=== PATIENT | male | born 1990 | race Caucasian/White ===

== ENCOUNTER 2022-12-11 15:35 | Emergency (ER) | payer SELFPAY ==
[2022-12-11 15:37] VITALS: BP 136/107; PULSE 115; RESP 16; TEMP 36.6; O2SAT 92; BMI 21.6
[2022-12-11] MEDS: famotidine 20 mg/2 mL INJ 40 MG IVP (15:49)
[2022-12-11] MEDS: dexamethasone 10 mg/mL INJ IVP (15:49)
[2022-12-11] MEDS: diphenhydrAMINE 50 mg/mL SDV 1mL IVP (15:49)
--- NOTE | 2022-12-11 15:52 | W.ED.ALLEREA ---
HPI - Allergic Reaction General: Chief complaint: Allergic Reaction Stated complaint: Bee Sting, Allergic Time Seen by Provider: 12/11/22 15:36 Source: patient Mode of arrival: ambulatory Limitations: no limitations History of Present Illness: HPI narrative: 32-year-old male who has a history of asthma along with allergic reaction to bee stings he states he was stung in his upper lip just prior to arrival he states he had swelling to lip along with shortness of breath and wheezing he does have wheezing here with some tachypnea mild swelling to his lip denies any difficulty swallowing had a slight rash to his body. Associated symptoms: Deny abdominal pain, nausea or vomiting Review of Systems Const: Denies: fever(s) or chills Eyes: Denies: blurry vision ENMT: Denies: throat pain or odynophagia Card: Denies: chest pain Resp: Reports: dyspnea and wheezing GI: Denies: abdominal pain, nausea or vomiting Skin/Breast: Reports: rash Neuro: Denies: headache(s) Psych: Denies: depression PFSH ED PFSH: Social History Smoking and tobacco status: current every day smoker Physical Exam Const: COMMON NORMALS: patient oriented x3 HENMT: COMMON NORMALS: normocephalic and atraumatic HEAD & SCALP: normocephalic and atraumatic OTHER: Swelling to upper lip no difficulty with secretions or throat closing Eye: COMMON NORMALS: conjunctivae normal CONJUNCTIVA: Yes conjunctivae normal Neck/C-Spine: COMMON NORMALS: supple Chest: COMMONS NORMALS: normal inspection of the chest Resp: EFFORT & INSPECTION: Yes tachypneic AUSCULTATION: wheezes Cardio: COMMON NORMALS: regular rhythm RATE: tachycardic RHYTHM: regular rhythm GI: INSPECTION: Yes normal to inspection Extremity: COMMON NORMALS: normal to inspection Neuro: COMMON NORMALS: patient oriented x3 Psych: COMMON NORMALS: mental status grossly normal Skin: NARRATIVE SKIN EXAM: Mild rash to chest Course Vital Signs: Vital signs: Vital Signs Temperature 97.9 F 12/11/22 15:37 Pulse Rate 95 12/11/22 17:08 Respiratory Rate 16 12/11/22 17:08 Blood Pressure 130/90 12/11/22 17:08 Pulse Oximetry 98 12/11/22 17:08 Oxygen Delivery Me thod Room Air 12/11/22 15:37 MDM - Allergic Reaction Medical Decision Making Patient presents here with allergic reaction to bee sting. He is much improved here after epinephrine did observe him for roughly 2 hours he is wanted to leave I feel he is stable for discharge we will prescribe him epi and prednisone he is follow-up PCP and return if worsening. Medical Records I reviewed the patient's medical records. Lab Data I reviewed the patient's lab results. Discharge Plan Discharge Patient Disposition: Home Clinical Impression: Allergic reaction Condition: Stable Prescriptions: New EpiPen 2-Murphy 0.3 mg/0.3 mL auto-injector 0.3 mg IM Q4H PRN (Reason: anaphylaxis) Qty: 2 0RF prednisone 50 mg tablet 50 mg PO DAILY Qty: 5 0RF No Action albuterol sulfate 2.5 mg /3 mL (0.083 %) solution for nebulization 2.5 mg inhalation QID PRN (Reason: shortness of breath or wheezing) Qty: 30 0RF Rx Instructions: 340b azithromycin 250 mg tablet See Rx Instructions PO .COMPLEX Qty: 6 0RF Rx Instructions: take 500 mg today (day 1), then 250 mg for 4 days (days 2-5) PO methylprednisolone [Medrol (Murphy)] 4 mg tablets,dose pack See Rx Instructions PO PER PKG DIR Qty: 21 0RF Rx Instructions: PO PER PKG DIR Discharge Orders: Discharge ED (Routine); Ordered 12/11/22 Ordered By: Opal Hernandez Discharge Diet: Advance as tolerated Discharge Activity: Resume usual activity Patient Instructions: Allergic Reaction Coding Level of Care Code ED Physical Chemist for Demar Tobin
[2022-12-11] MEDS: EPINEPHrine 1 mg/mL INJ 0.5 MG IM (16:00)
[2022-12-11 16:29] VITALS: BP 128/82; PULSE 93; RESP 19; O2SAT 97
[2022-12-11 17:08] VITALS: BP 130/90; PULSE 95; RESP 16; O2SAT 98
[2022-12-11 17:32] VITALS: BP 132/87; PULSE 96; RESP 18; O2SAT 98
--- NOTE | 2022-12-16 12:53 | DCPLANNER ---
digital content manager called patient due to no primary care physician - patient declines at this time.
== END 2022-12-11 17:33 | disposition home or self-care (01) ==
PROVIDERS: Emergency Provider Emergency Medicine
DX: T63.441A Toxic effect of venom of bees, accidental (unintentional), initial encounter (principal)
CPT/HCPCS: 96372; 96374; 96375; 99284; J0171; J1100; J1200; J3490

== ENCOUNTER 2023-10-09 08:50 | Observation (INO) | payer SELFPAY ==
[2023-10-09] VITALS (9 sets, daily range): BP systolic 123–154; BP diastolic 77–94; PULSE 86–116; RESP 16–18; TEMP 36.3–37.1; O2SAT 95–99; BMI 25.5
--- NOTE | 2023-10-09 09:05 | CT_ITS ---
WS: [id number] Exam: CT abdomen pelvis w con* [id number] Date/Time of Exam: 10/09/2023 9:46 AM Reason For Exam: abdominal distention/leg swelling DLP: 535.[address] scans at [facility] use at least one of these dose optimization techniques: automated e xposure control; mA and/or kV adjustment per patient size (includes targeted exams where dose is matc hed to clinical indication); or iterative reconstruction. Lower lung zones are clear. Moderate amount of pelvic and abdominal ascites. Hydropic gallbladder. No sign of acute cholecystitis. Several tiny calcified stones are seen in the dependent portion of the gallbladder. The stomach and spleen are unremarkable. The pancreas appears normal. No intrahepatic du ctal dilatation. Hepatic steatosis and probable hepatic cirrhosis noted. The abdominal aorta is robin l in caliber. The portal vein and IVC are patent. Unremarkable kidneys and adrenal glands. No signifi cant lymphadenopathy. No free air. No significant large or small bowel abnormality seen. Normal size appendix visualized. Intact urinary bladder. No pelvic mass or adenopathy. Bony structures are intact . No significant abdominal wall defect. IMPRESSION: 1. Moderate amount of abdominal and pelvic ascites. 2. Probable hepatic cirrhosis and steatosis. 3. Hydropic gallbladder containing tiny stones in the dependent portion. No definite sign of acute ch olecystitis.
--- NOTE | 2023-10-09 09:05 | XRR_ITS ---
PROCEDURE INFORMATION: Exam: XR Chest Exam date and time: 10/09/2023 9:20 AM Age: 33 years old Clinical indication: Other: Swollen legs; Additional info: Swelling TECHNIQUE: Imaging protocol: Radiologic exam of the chest. Views: 1 view. COMPARISON: No relevant prior studies available. FINDINGS: Lungs: Unremarkable. No consolidation. Pleural spaces: Unremarkable. No pleural effusion. No pneumothorax. Heart/Mediastinum: Unremarkable. No cardiomegaly. Bones/joints: Unremarkable. XR/XR chest 1V portable [id number] IMPRESSION: No acute findings.
--- NOTE | 2023-10-09 09:07 | W.ED.GENADLT ---
Documented by User: [email or web address] José 10/09/23 11:14 HPI - General Adult General: Chief complaint: General Medical Stated complaint: swollen legs and feet Time Seen by Provider: 10/09/23 08:56 Source: patient and family Mode of arrival: ambulatory Limitations: no limitations History of Present Illness: Patient is a 33-year-old male with a history of asthma and heavy alcohol use here for complaints of swelling to his lower extremities and abdominal distention. Patient states he first noticed swelling to his legs approximately 3 weeks or so ago. He states he was seen by his PCP Dr. Vizcarra at [facility] and had labs performed. Patient states swelling has continued to worsen and is now affecting his abdomen. He does not complain of abdominal discomfort. He states he quit drinking just a few days ago but prior to this he was consuming approximately a six pack of beer a night. Denies drug use apart from marijuana. He states he has not noticed any yellowing to his skin or eyes. He complains of mild shortness of breath that he attributes to his asthma stating this time of year he has to do daily breathing treatments. Onset (ago): week(s) Location: abdomen and lower extremity Severity: moderate Quality: aching Relieving factors: none Exacerbating factors: none Associated symptoms: Reports dyspnea; Deny chest pain, headache(s), malaise, nausea, rash, palpitations, syncope or vomiting Treatments prior to arrival: none Review of Systems Const: Reports: chills; Denies: fever(s), body aches, fatigue or malaise Eyes: Denies: change in vision, blurry vision, photophobia or yellow eyes Card: Denies: chest pain, palpitations, irregular heart rhythm, lightheadedness, syncope or dyspnea on exertion Resp: Reports: dyspnea and wheezing; Denies: productive cough, non-productive cough, pain on inspiration, change in phlegm color, hemoptysis or chest congestion GI: Reports: other (abdominal swelling/distention); Denies: abdominal pain, nausea, vomiting, hematemesis, heartburn, diarrhea, hematochezia or melena : Denies: flank pain, difficulty urinating, dysuria, urinary frequency or urinary urgency Musc: Reports: extremity pain and extremity swelling; Denies: neck pain, back pain, joint pain or joint swelling Skin/Breast: Denies: rash Neuro: Denies: headache(s), numbness in extremities, weakness in extremities, sensory changes or dizziness PFS ED PFSH: Social History Smoking and tobacco/nicotine status: current every day tobacco/nicotine user Physical Exam Const: COMMON NORMALS: no acute distress, patient oriented x3, no limitations, alert and well nourished GENERAL APPEARANCE: cooperative ORIENTATION/CONSCIOUSNESS: Yes awake, Yes oriented to person, Yes oriented to place and Yes oriented to time OTHER: appears jaundiced HENMT: COMMON NORMALS: normocephalic and atraumatic HEAD & SCALP: normal to inspection, normocephalic and atraumatic FACE & SINUS: normal facial exam Eye: COMMON NORMALS: no scleral icterus Neck/C-Spine: COMMON NORMALS: full ROM, no lymphadenopathy, supple and no meningeal signs Chest: COMMONS NORMALS: normal inspection of the chest Resp: COMMON NORMALS: normal respiratory effort AUSCULTATION: wheezes Cardio: COMMON NORMALS: regular rhythm RATE: tachycardic (slightly) RHYTHM: regular rhythm GI: COMMON NORMALS: Soft to palpation, non-tender and no masses INSPECTION: Yes abdominal distension AUSCULTATION: Yes normoactive bowel sounds PALPATION: Yes Soft to palpation, No Tenderness to palpation present (GI), No Guarding due to palpation present (GI) and No Rigid due to palpation : COMMON NORMALS: Yes no CVA tenderness BLADDER/KIDNEY EXAM: Yes no CVA tenderness Back/Pelvis: COMMON NORMALS: no CVA tenderness and thoracic and lumbar spine normal to inspection Extremity: COMMON NORMALS: full ROM and capillary refill normal NARRATIVE EXTREMITY EXAM: pt has significant pitting symmetrical edema to bilateral LEs Neuro: COMMON NORMALS: patient oriented x3, moves all extremities, no focal motor deficits, no sensory deficits noted and gait normal SENSORIUM/ORIENTATION: Yes alert, Yes oriented to person, Yes oriented to place and Yes oriented to time MENINGEAL SIGNS: Yes no meningeal signs Skin: COMMON NORMALS: no rashes or lesions noted GENERAL SKIN EXAM: no rashes or lesions noted and jaundice Course Vital Signs: Vital signs: Vital Signs Temperature 98.3 F 10/09/23 09:02 Pulse Rate 86 10/09/23 11:45 Respiratory Rate 18 10/09/23 11:42 Blood Pressure 136/93 03/25/24 11:42 Pulse Oximetry 99 10/09/23 11:42 Oxygen Delivery Me thod Room Air 10/09/23 11:42 MDM - General Adult Medical Decision Making Patient is a 33-year-old male here for complaints of lower extremity leg swelling and abdominal distention over the past 3 weeks or so. He has never experienced anything prior to this before. He does have a history of heavy alcohol use. Blood work today showing thrombocytopenia with significantly elevated LFTs. Hepatitis panel is negative. CT scan showing abdominal ascites with probable hepatic cirrhosis. Will speak to Dr. Carlton who will speak to hospitalist for admission. Medical Records I reviewed the patient's medical records. Lab Data I reviewed the patient's lab results. 10/09/23 09:06 10/09/23 09:06 Laboratory Results WBC 10.57 10^3/uL (3.29-11.43) 10/09/23 09:06 RBC 4.06 10^6/uL (3.85-5.65) 10/09/23 09:06 Hgb 14.80 g/dL (11.27-16.99) 10/09/23 09:06 Hct 43.2 % (37-53) 10/09/23 09:06 MCV 106.4 fl (82-101) H 10/09/23 09:06 MCH 36.5 pg (27-33) H 10/09/23 09:06 MCHC 34.3 g/dL (30-55) 10/09/23 09:06 RDW 16.3 % (12.1-15.1) H 10/09/23 09:06 Plt Count 154 10^3/cmm (157-399) L 10/09/23 09:06 MPV 11.0 fL (7.4-10.4) H 10/09/23 09:06 Neut % (Auto) 75.1 % 10/09/23 09:06 Lymph % (Auto) 14.5 % 10/09/23 09:06 [place] % (Auto) 8.6 % 10/09/23 09:06 Eos % (Auto) 0.2 % 10/09/23 09:06 Baso % (Auto) 1.1 % 10/09/23 09:06 Neut # (Auto) 7.94 10^3/uL (1.8-7.7) H 10/09/23 09:06 Lymph # (Auto) 1.5 10^3/uL (0.8-4.8) 10/09/23 09:06 [place] # (Auto) 0.9 10^3/uL (0.2-0.9) 10/09/23 09:06 Eos # (Auto) 0.0 10^3/uL (0.0-0.8) 10/09/23 09:06 Baso # (Auto) 0.1 10^3/uL (0.0-0.1) 10/09/23 09:06 Nucleated RBC % (auto) 0 % 10/09/23 09:06 Nucleated RBCs # 0.0 /100WBC 10/09/23 09:06 PT 15.00 SECONDS (12.1-14.9) H 10/09/23 09:06 INR 1.14 (0.8-1.2) 10/09/23 09:06 APTT 29.7 SECONDS (23.9-36.7) 10/09/23 09:06 Sodium 137 mmol/L (136-145) 10/09/23 09:06 Potassium 4.0 mmol/L (3.5-5.1) 10/09/23 09:06 Chloride 102 mmol/L (98-107) 10/09/23 09:06 Carbon Dioxide 23 mmol/L (22-29) 10/09/23 09:06 Anion Gap 16.0 (5-19) 10/09/23 09:06 BUN 6 mg/dL (6-20) 10/09/23 09:06 Creatinine 0.5 mg/dL (0.7-1.2) L 10/09/23 09:06 GFR Calculation 193.9 mL/min (90-130) H 10/09/23 09:06 Glucose 97 mg/dL (65-115) 10/09/23 09:06 Calculated Osmolality 282 mOsm/kg (285-295) L 10/09/23 09:06 Calcium 8.1 mg/dL (8.5-10.5) L 10/09/23 09:06 Total Bilirubin 4.2 mg/dL (0.15-1.2) H 10/09/23 09:06 AST 175 U/L (0-40) H 10/09/23 09:06 ALT 77 U/L (0-41) H 10/09/23 09:06 Alkaline Phosphatase 262 U/L (40-130) H 10/09/23 09:06 NT-Pro-B Natriuret Pep 926 pg/mL (0-125) H 10/09/23 09:06 Total Protein 6.7 g/dL (6.6-8.7) 10/09/23 09:06 Albumin 3.2 g/dL (3.5-5.2) L 10/09/23 09:06 Globulin 3.5 g/dL (1.3-4.6) 10/09/23 09:06 Lipase 66 U/L (13-60) H 10/09/23 09:06 Urine Color Christina (Yellow) 10/09/23 09:35 Urine Appearance Clear (CLEAR) 10/09/23 09:35 Urine pH 7 (5-7) 10/09/23 09:35 Ur Specific [place] 1.005 (1.005-1.030) 10/09/23 09:35 Urine Protein Trace (Negative) 10/09/23 09:35 Urine Glucose (UA) Norm (Normal) 10/09/23 09:35 Urine Ketones Negative (Negative) 10/09/23 09:35 Urine Blood Neg (Negative) 10/09/23 09:35 Urine Nitrate Negative (Negative) 10/09/23 09:35 Urine Bilirubin 1+ (Negative) H 10/09/23 09:35 Urine Urobilinogen 4 mg/dL (Negative) H 10/09/23 09:35 Ur Leukocyte Esterase Trace (Negative) H 10/09/23 09:35 Urine RBC None /hpf (0-2) 10/09/23 09:35 Urine WBC 0-4 /hpf (0-5) H 10/09/23 09:35 Ur Squamous Epith Cells 0-4 /hpf (0-5) H 10/09/23 09:35 Amorphous Sediment Not Reportable 10/09/23 09:35 Urine Bacteria Trace /hpf (NONE) 10/09/23 09:35 Urine Mucus 1+ /hpf 10/09/23 09:35 Hepatitis A IgM Ab Non-reactive (Nonreactive) 10/09/23 09:06 Hep Bs Antigen Non-reactive (Nonreactive) 10/09/23 09:06 Hep B Core IgM Ab Non-reactive (Nonreactive) 10/09/23 09:06 Hepatitis C Antibody Non-reactive (Nonreactive) 10/09/23 09:06 All radiology interpretation(s) finalized by discharge Discharge Plan Discharge Patient Disposition: Admitted As Inpatient Clinical Impression: Chronic alcohol abuse Cirrhosis of liver Qualifiers: Hepatic cirrhosis type: alcoholic cirrhosis Ascites presence: with ascites Qualified Code(s): K70.31 - Alcoholic cirrhosis of liver with ascites Condition: Stable Coding Level of Care Code ED Technical Sales Representative for Chg Fwd Documented by User: Lev Carlton DO 10/09/23 12:24 HPI - General Adult General: Chief complaint: General Medical Stated complaint: swollen legs and feet Time Seen by Provider: 10/09/23 08:56 [facility] ED PFSH: Social History Smoking and tobacco/nicotine status: current every day tobacco/nicotine user Course Vital Signs: Vital signs: Vital Signs Temperature 98.3 F 10/09/23 09:02 Pulse Rate 86 10/09/23 11:45 Respiratory Rate 18 10/09/23 11:42 Blood Pressure 136/93 10/09/23 11:42 Pulse Oximetry 99 10/09/23 11:42 Oxygen Delivery Me thod Room Air 10/09/23 11:42 MDM - General Adult Medical Decision Making Patient is a 33-year-old male here for complaints of lower extremity leg swelling and abdominal distention over the past 3 weeks or so. He has never experienced anything prior to this before. He does have a history of heavy alcohol use. Blood work today showing thrombocytopenia with significantly elevated LFTs. Hepatitis panel is negative. CT scan showing abdominal ascites with probable hepatic cirrhosis. Will speak to Dr. Carlton who will speak to hospitalist for admission. 33-year-old male initially seen by ABIGAIL José for swelling in his legs and feet. Transaminases and T. bili have been elevated while previous lab work and [facility] which were scanned to the chart similar findings today INR slightly extended from baseline. Patient is tremulous and anxious he is trying to stop drinking. Has hepatitis panel is negative. Discussed with hospitalist will place on observation for detox and diuresis Lab Data 10/09/23 09:06 10/09/23 09:06 Laboratory Results WBC 10.57 10^3/uL (3.29-11.43) 10/09/23 09:06 RBC 4.06 10^6/uL (3.85-5.65) 10/09/23 09:06 Hgb 14.80 g/dL (11.27-16.99) 10/09/23 09:06 Hct 43.2 % (37-53) 10/09/23 09:06 MCV 106.4 fl (82-101) H 10/09/23 09:06 MCH 36.5 pg (27-33) H 10/09/23 09:06 MCHC 34.3 g/dL (30-55) 10/09/23 09:06 RDW 16.3 % (12.1-15.1) H 10/09/23 09:06 Plt Count 154 10^3/cmm (157-399) L 10/09/23 09:06 MPV 11.0 fL (7.4-10.4) H 10/09/23 09:06 Neut % (Auto) 75.1 % 10/09/23 09:06 Lymph % (Auto) 14.5 % 10/09/23 09:06 [place] % (Auto) 8.6 % 10/09/23 09:06 Eos % (Auto) 0.2 % 10/09/23 09:06 Baso % (Auto) 1.1 % 10/09/23 09:06 Neut # (Auto) 7.94 10^3/uL (1.8-7.7) H 10/09/23 09:06 Lymph # (Auto) 1.5 10^3/uL (0.8-4.8) 10/09/23 09:06 [place] # (Auto) 0.9 10^3/uL (0.2-0.9) 10/09/23 09:06 Eos # (Auto) 0.0 10^3/uL (0.0-0.8) 10/09/23 09:06 Baso # (Auto) 0.1 10^3/uL (0.0-0.1) 10/09/23 09:06 Nucleated RBC % (auto) 0 % 10/09/23 09:06 Nucleated RBCs # 0.0 /100WBC 10/09/23 09:06 PT 15.00 SECONDS (12.1-14.9) H 10/09/23 09:06 INR 1.14 (0.8-1.2) 10/09/23 09:06 APTT 29.7 SECONDS (23.9-36.7) 10/09/23 09:06 Sodium 137 mmol/L (136-145) 10/09/23 09:06 Potassium 4.0 mmol/L (3.5-5.1) 10/09/23 09:06 Chloride 102 mmol/L (98-107) 10/09/23 09:06 Carbon Dioxide 23 mmol/L (22-29) 10/09/23 09:06 Anion Gap 16.0 (5-19) 10/09/23 09:06 BUN 6 mg/dL (6-20) 10/09/23 09:06 Creatinine 0.5 mg/dL (0.7-1.2) L 10/09/23 09:06 GFR Calculation 193.9 mL/min (90-130) H 10/09/23 09:06 Glucose 97 mg/dL (65-115) 10/09/23 09:06 Calculated Osmolality 282 mOsm/kg (285-295) L 10/09/23 09:06 Calcium 8.1 mg/dL (8.5-10.5) L 10/09/23 09:06 Total Bilirubin 4.2 mg/dL (0.15-1.2) H 10/09/23 09:06 AST 175 U/L (0-40) H 10/09/23 09:06 ALT 77 U/L (0-41) H 10/09/23 09:06 Alkaline Phosphatase 262 U/L (40-130) H 10/09/23 09:06 NT-Pro-B Natriuret Pep 926 pg/mL (0-125) H 10/09/23 09:06 Total Protein 6.7 g/dL (6.6-8.7) 10/09/23 09:06 Albumin 3.2 g/dL (3.5-5.2) L 10/09/23 09:06 Globulin 3.5 g/dL (1.3-4.6) 10/09/23 09:06 Lipase 66 U/L (13-60) H 10/09/23 09:06 Urine Color Christina (Yellow) 10/09/23 09:35 Urine Appearance Clear (CLEAR) 10/09/23 09:35 Urine pH 7 (5-7) 10/09/23 09:35 Ur Specific [place] 1.005 (1.005-1.030) 10/09/23 09:35 Urine Protein Trace (Negative) 10/09/23 09:35 Urine Glucose (UA) Norm (Normal) 10/09/23 09:35 Urine Ketones Negative (Negative) 10/09/23 09:35 Urine Blood Neg (Negative) 10/09/23 09:35 Urine Nitrate Negative (Negative) 10/09/23 09:35 Urine Bilirubin 1+ (Negative) H 10/09/23 09:35 Urine Urobilinogen 4 mg/dL (Negative) H 10/09/23 09:35 Ur Leukocyte Esterase Trace (Negative) H 10/09/23 09:35 Urine RBC None /hpf (0-2) 10/09/23 09:35 Urine WBC 0-4 /hpf (0-5) H 10/09/23 09:35 Ur Squamous Epith Cells 0-4 /hpf (0-5) H 10/09/23 09:35 Amorphous Sediment Not Reportable 10/09/23 09:35 Urine Bacteria Trace /hpf (NONE) 10/09/23 09:35 Urine Mucus 1+ /hpf 10/09/23 09:35 Hepatitis A IgM Ab Non-reactive (Nonreactive) 10/09/23 09:06 Hep Bs Antigen Non-reactive (Nonreactive) 10/09/23 09:06 Hep B Core IgM Ab Non-reactive (Nonreactive) 10/09/23 09:06 Hepatitis C Antibody Non-reactive (Nonreactive) 10/09/23 09:06 Discharge Plan Discharge Patient Disposition: Admitted As Inpatient Clinical Impression: Chronic alcohol abuse Cirrhosis of liver Qualifiers: Hepatic cirrhosis type: alcoholic cirrhosis Ascites presence: with ascites Qualified Code(s): K70.31 - Alcoholic cirrhosis of liver with ascites Condition: Stable Coding Level of Care Code ED Technical Sales Representative for Demar Tobin
[2023-10-09 09:21] LABS: Basophils # 0.1 10^3/uL (0.0-0.1); Basophils % 1.1 %; Eosinophils % 0.2 %; Hematocrit 43.2 % (37-53); Lymphocytes # 1.5 10^3/uL (0.8-4.8); Lymphocytes % 14.5 %; Mean Corpuscular HGB Conc 34.3 g/dL (30-55); Mean Corpuscular Hemoglobin 36.5 pg (27-33); Mean Corpuscular Volume 106.4 fl (82-101); Monocytes # 0.9 10^3/uL (0.2-0.9); Monocytes % 8.6 %; Neutrophils # 7.94 10^3/uL (1.8-7.7); Neutrophils % 75.1 %; Nucleated Red Blood Cells % 0 %; Platelet Count 154 10^3/cmm (157-399); Red Blood Count 4.06 10^6/uL (3.85-5.65); Red Cell Distribution Width 16.3 % (12.1-15.1); White Blood Count 10.57 10^3/uL (3.29-11.43)
[2023-10-09 09:34] LABS: INR 1.14 (0.8-1.2)
[2023-10-09 09:45] LABS: Alanine Aminotransferase 77 U/L (0-41); Albumin Level 3.2 g/dL (3.5-5.2); Alkaline Phosphatase 262 U/L (40-130); Aspartate Amino Transferase 175 U/L (0-40); Blood Urea Nitrogen 6 mg/dL (6-20); Calcium 8.1 mg/dL (8.5-10.5); Carbon Dioxide 23 mmol/L (22-29); Chloride 102 mmol/L (98-107); Creatinine Clr Calc Pharmacy 227.4382; Globulin 3.5 g/dL (1.3-4.6); Glomerular Filtration Rate 193.9 mL/min (90-130); Glucose 97 mg/dL (65-115); Lipase 66 U/L (13-60); NT Pro B Type Natriuretic Pept 926 pg/mL (0-125); Osmolality Calculated 282 mOsm/kg (285-295); Sodium 137 mmol/L (136-145); Total Bilirubin 4.2 mg/dL (0.15-1.2); Total Protein 6.7 g/dL (6.6-8.7)
[2023-10-09 09:57] LABS: Partial Thromboplastin Time 29.7 SECONDS (23.9-36.7)
[2023-10-09] MEDS: iohexol 350 mg/mL 500 mL Btl (per mL) IV (10:01)
[2023-10-09 10:15] LABS: Add Urine Microscopic? YES; Bilirubin Urine 1+ (Negative); Blood Urine Neg (Negative); Glucose Urine UA Norm (Normal); Ketones Urine Negative (Negative); Leukocyte Esterase Urine Trace (Negative); Nitrate Urine Negative (Negative); Protein Urine Trace (Negative); Specific Gravity, Urine 1.005 (1.005-1.030); Urine Appearance Clear (CLEAR); Urine Color Amber (Yellow); Urobilinogen Urine 4 mg/dL (Negative); pH Urine 7 (5-7)
[2023-10-09 10:17] LABS: Add Urine Culture? No; Bacteria Urine TRACE /hpf; Mucus Urine 1+ /hpf; Squamous Epithelial Cell Urine 0-4 /hpf (0-5); WBC Urine 0-4 /hpf (0-5)
[2023-10-09 10:19] LABS: Hepatitis A Antibody IgM Non-Reactive (Nonreactive); Hepatitis B Core IgM Non-Reactive (Nonreactive); Hepatitis B Surface Antigen Non-Reactive (Nonreactive); Hepatitis C Virus Antibody Non-Reactive (Nonreactive)
[2023-10-09] MEDS: ipratropium-albuterol 3 mL Neb INHALATION (11:42)
--- NOTE | 2023-10-09 11:57 | ECG_ITS ---
[facility] Test Date: 2023-10-09 Pat Name: Alden Mayfield Department: Room: Gender: Male Dispensary Technician: : 1990 Requested By: Lev Henson Order Number: [id number] Rose MD: Girish Avendano M.D. Measurements Intervals [place] Rate: 82 P: 72 [place]: 105 QRS: 52 QRSD: 98 T: 32 QT: 393 QTc: 460 Interpretive Statements SINUS RHYTHM WITH SHORT WA INTERVAL Compared to ECG 10/27/2015 08:56:55 Sinus arrhythmia no longer present Electronically Signed On 10-09-2023 12:20:52 CDT by Girish Avendano M.D. [email or web address]
--- NOTE | 2023-10-09 12:24 | PM.HP ---
Providers/Chief Complaint Admitting Physician: Caleb Carter MD Chief Complaint: swollen legs and feet History of Present Illness Alden Mayfield is a 33 year old male presenting to the emergency department with swollen abdomen, and legs. He has also been somewhat jittery. He reports he drinks a tremendous amount of alcohol over 2 pints a day, recently quit drinking 2 days ago. He denies any vomiting although he is felt slightly nauseous. No diarrhea. He denies any blood in his stool or black or tarry stools. He denies any fever. He believes his abdomen might be a little bit better than yesterday. No abdominal pain. Review of Systems Const: Denies: fever(s) or chills Card: Reports: swelling of feet/ankles; Denies: chest pain Resp: Denies: dyspnea GI: Reports: nausea; Denies: abdominal pain, vomiting, hematochezia or melena Medications/Allergies Home Medications Medication Instructions Recorded Confirmed Last Taken Type albuterol sulfate 2.5 mg/3 mL 2.5 mg (3 mL) inhalation QID PRN 09/11/20 10/09/23 10/08/23 Rx (0.083 %) solution for nebulization shortness of breath or wheezing #30 mL epinephrine 0.3 mg/0.3 mL 0.3 mg (0.3 mL) IM Q4H PRN 12/11/22 10/09/23 Unknown Rx injection, auto-injector (EpiPen anaphylaxis #2 ea 2-Murphy) gabapentin 300 mg capsule 300 mg PO BEDTIME 10/09/23 10/09/23 10/08/23 History tizanidine 4 mg tablet 4 mg PO Q8H PRN Spasms 10/09/23 10/09/23 10/08/23 History Allergies Allergy/AdvReac Type Severity Reaction Status Date / Time No Known Allergies Allergy Verified 09/11/20 14:24 PFSH Acute PFSH: Medical History (Updated 10/09/23 @ 14:08 by Caleb Carter MD) Chronic back pain Asthma Chronic alcohol abuse Family History Other Cancer Social History (Updated 10/09/23 @ 14:05 by Caleb Carter MD) Smoking and tobacco/nicotine status: current every day tobacco/nicotine user Alcohol intake: current Alcohol intake frequency: 3 or more drinks per day Alcohol use comment: Several pints today Substance/Drug Use: current Substance/Drug use type: Marijuana Vitals/I&O/Wt Last Vital Signs Temp 98.3 F 10/09/23 09:02 Pulse 86 10/09/23 11:45 Resp 18 10/09/23 11:42 BP 136/93 10/09/23 11:42 Pulse Ox 99 10/09/23 11:42 O2 Del Method Room Air 10/09/23 11:42 Weight last 48 hrs Weight 74.843 kg Physical Exam Narrative: General exam demonstrates a white male, some tremor. Heart rate approximately 101 when I am in the room and blood pressure 150/90 HEENT: Atraumatic normocephalic. Oropharynx is clear Neck is supple no lymphadenopathy thyromegaly Cardiovascular tachycardic, no murmur Lungs clear no wheezing or crackles Abdomen slight distention. Not tight but fluid wave is present. No obvious mass. exam is deferred Extremities show 2+ edema bilaterally Skin no rash Neuro no obvious focal deficits Data 10/09/23 09:06 10/09/23 09:06 Other Labs: INR is normal LFTs demonstrate a total bilirubin of 4.2, AST of 175, ALT of 77, alk phos of 262. BNP is elevated at 926. Lipase 66 Albumin 3.2 Urinalysis 0-4 whites 0-4 reds and 4+ bilirubin Hepatitis panel negative CT abdomen pelvis which I reviewed demonstrated a moderate amount of ascites, hepatic cirrhosis, hydropic gallbladder with a few kidney stones Chest x-ray demonstrates normal cardiac silhouette, no infiltrate by my read EKG by my read demonstrated a normal axis, rate of 80, poor R wave progression A&P Assessment and plan (1) Cirrhosis of liver: There is concern for significant cirrhosis of liver, with perhaps acute worsening but no significant baseline studies are available. Certainly has not had a problem with edema lately and has some evidence of anasarca on exam. Avoid alcohol Laboratory is consistent with this with elevated MCV, low platelets, elevated LFTs, CT scan demonstrating hepatic cirrhosis and steatosis Hepatitis panel negative Qualifiers: Ascites presence: with ascites Hepatic cirrhosis type: alcoholic cirrhosis Qualified Code(s): K70.31 - Alcoholic cirrhosis of liver with ascites (2) Anasarca: Initiate diuresis with Lasix Overall ultimate plan will be to introduce Aldactone Will need to follow up for GI specialty services as an outpatient Close monitoring of renal function with CBC and CMP tomorrow No plan on paracentesis today. Will reevaluate following diuresis. (3) Alcohol withdrawal: Patient is exhibiting some alcohol withdrawal CIWA protocol (4) Chronic alcohol abuse: Avoidance Will provide resources through [employer] social media and crm Plan Nicotine dependency. Currently will place on nicotine patch Full code currently With workup for cytopenia, cirrhosis, hold off on any anticoagulation for DVT prophylaxis. Use SCDs. Protonix for GI prophylaxis Attestations Medical Necessity Statement*: Will need less than 2 midnight stay for evaluation and treatment of liver disease with alcohol withdrawal Diagnoses Cirrhosis of liver K70.31 Ascites presence: with ascites Hepatic cirrhosis type: alcoholic cirrhosis Anasarca R60.1 Alcohol withdrawal F10.939 Chronic alcohol abuse F10.10 Time Spent (min) 76
[2023-10-09] MEDS: nicotine 21 mg Patch 1 PATCH TRANSDERMA (12:53)
[2023-10-09] MEDS: FUROsemide 10 mg/mL SDV 4mL 40 MG IVP (12:53)
[2023-10-09] MEDS: LORazepam 2 mg/mL INJ 10 mL MDV IVP (13:10)
--- NOTE | 2023-10-09 13:28 | PC.NURSE ---
This nurse received report from BERENICE Hurtado in ER at 1327.
[2023-10-09] MEDS: pantoprazole DR 40 mg Tablet PO (17:23)
[2023-10-09] MEDS: LORazepam 2 mg Tablet PO ×2 (18:35→23:16)
[2023-10-10] VITALS: BP 136/83; PULSE 90; RESP 17; O2SAT 96
[2023-10-10 04:37] VITALS: BP 153/91; PULSE 90; RESP 17; O2SAT 97
[2023-10-10 05:17] LABS: Basophils # 0.1 10^3/uL (0.0-0.1); Basophils % 1.4 %; Eosinophils # 0.1 10^3/uL (0.0-0.8); Eosinophils % 0.7 %; Hematocrit 36.1 % (37-53); Lymphocytes # 1.1 10^3/uL (0.8-4.8); Lymphocytes % 15.3 %; Mean Corpuscular HGB Conc 34.9 g/dL (30-55); Mean Corpuscular Hemoglobin 36.5 pg (27-33); Mean Corpuscular Volume 104.6 fl (82-101); Mean Platelet Volume 10.5 fL (7.4-10.4); Monocytes # 0.7 10^3/uL (0.2-0.9); Neutrophils # 5.07 10^3/uL (1.8-7.7); Neutrophils % 72.3 %; Nucleated Red Blood Cells % 0 %; Platelet Count 134 10^3/cmm (157-399); Red Blood Count 3.45 10^6/uL (3.85-5.65); Red Cell Distribution Width 16.3 % (12.1-15.1); White Blood Count 7.01 10^3/uL (3.29-11.43)
[2023-10-10 05:53] LABS: Alanine Aminotransferase 61 U/L (0-41); Albumin Level 2.8 g/dL (3.5-5.2); Alkaline Phosphatase 208 U/L (40-130); Anion Gap 14.6 (5-19); Aspartate Amino Transferase 118 U/L (0-40); Blood Urea Nitrogen 5 mg/dL (6-20); Calcium 7.8 mg/dL (8.5-10.5); Carbon Dioxide 25 mmol/L (22-29); Chloride 100 mmol/L (98-107); Globulin 3.1 g/dL (1.3-4.6); Glomerular Filtration Rate 250.9 mL/min (90-130); Glucose 93 mg/dL (65-115); Magnesium 1.6 mg/dL (1.7-2.3); Osmolality Calculated 279 mOsm/kg (285-295); Potassium 3.6 mmol/L (3.5-5.1); Sodium 136 mmol/L (136-145); Total Bilirubin 3.5 mg/dL (0.15-1.2); Total Protein 5.9 g/dL (6.6-8.7)
[2023-10-10] MEDS: thiamine 100 mg Tablet PO (07:53)
[2023-10-10] MEDS: multivitamin therapeutic Tablet 1 TAB PO (07:53)
[2023-10-10] MEDS: magnesium sulfate premix 2 GM/50 ML PIGGYBACK IV (07:53)
[2023-10-10] MEDS: pantoprazole DR 40 mg Tablet PO (07:53)
[2023-10-10] MEDS: folic acid 1 mg Tablet PO (07:53)
[2023-10-10 08:00] VITALS: BP 169/96; PULSE 102; RESP 22; TEMP 36.3; O2SAT 98
--- NOTE | 2023-10-10 08:21 | PM.DCS ---
Discharge Providers Date of Admission: 10/09/23 14:12 Date of Discharge: October 10, 2023 Attending Provider at Admission: Caleb Carter MD Attending Provider at Discharge: Caleb Carter MD Diagnoses at Discharge Discharge Diagnosis (1) Cirrhosis of liver: Status: Acute Qualifiers: Ascites presence: with ascites Hepatic cirrhosis type: alcoholic cirrhosis Qualified Code(s): K70.31 - Alcoholic cirrhosis of liver with ascites (2) Anasarca: Status: Acute (3) Alcohol withdrawal: Status: Acute (4) Chronic alcohol abuse: Status: Acute Reason for Visit Reason for Visit: swollen legs and feet Hospital Course Hospital Course Alden is a 33-year-old white male who presented to the hospital with swelling in his abdomen and legs. He had significant history of alcohol intake, for quite a number of years. LFTs including bilirubin were elevated. CT abdomen pelvis did not demonstrate any hepatobiliary obstruction, did demonstrate a few small gallstones, and did demonstrate likely cirrhosis and fatty liver. During his emergency department course, he appeared to have some mild withdrawal. He was placed in the hospital on a CIWA protocol, Lasix was initiated for his fluid overload. By the next morning LFTs were improved. He appeared to be in significantly less withdrawal and had not used any Ativan overnight, and was desiring to go home. Hepatitis panel was negative. At that point it was thought reasonable to release the patient after giving him some outpatient literature on outpatient alcohol addiction treatment, initiation of prescriptions for Aldactone and Lasix, follow-up with his primary care provider in 3 to 5 days with lab work. He was told that he continues to drink it is likely this will progress to fulminant liver failure and and/or disability. I discussed with him that he may desire evaluation by gastroenterology and the referral could be placed by his primary if they believe it is indicated. He was given opportunity ask questions and agreed with the plan. Physical Exam Narrative: General exam no distress Neck is supple Cardiovascular regular rate and rhythm Lungs clear Abdomen soft, less swollen Extremities no cyanosis clubbing. Trace edema is present. Discharge Data Studies Completed and Pending Completed Studies During Hospitalization Category Date Time Status CT abdomen pelvis w con* [id number] Stat Cat Scan 10/09/23 09:05 Completed XR chest 1V portable [id number] Urgent Exams 10/09/23 09:05 Completed Radiology Impressions Chest X-Ray 10/09/23 09:05 IMPRESSION: No acute findings. Laboratory Results WBC 7.01 10^3/uL (3.29-11.43) 10/10/23 04:41 RBC 3.45 10^6/uL (3.85-5.65) L 10/10/23 04:41 Hgb 12.60 g/dL (11.27-16.99) 10/10/23 04:41 Hct 36.1 % (37-53) L 10/10/23 04:41 MCV 104.6 fl (82-101) H 10/10/23 04:41 MCH 36.5 pg (27-33) H 10/10/23 04:41 MCHC 34.9 g/dL (30-55) 10/10/23 04:41 RDW 16.3 % (12.1-15.1) H 10/10/23 04:41 Plt Count 134 10^3/cmm (157-399) L 10/10/23 04:41 MPV 10.5 fL (7.4-10.4) H 10/10/23 04:41 Neut % (Auto) 72.3 % 10/10/23 04:41 Lymph % (Auto) 15.3 % 10/10/23 04:41 Brooks % (Auto) 10.0 % 10/10/23 04:41 Eos % (Auto) 0.7 % 10/10/23 04:41 Baso % (Auto) 1.4 % 10/10/23 04:41 Neut # (Auto) 5.07 10^3/uL (1.8-7.7) 10/10/23 04:41 Lymph # (Auto) 1.1 10^3/uL (0.8-4.8) 10/10/23 04:41 Brooks # (Auto) 0.7 10^3/uL (0.2-0.9) 10/10/23 04:41 Eos # (Auto) 0.1 10^3/uL (0.0-0.8) 10/10/23 04:41 Baso # (Auto) 0.1 10^3/uL (0.0-0.1) 10/10/23 04:41 Nucleated RBC % (auto) 0 % 10/10/23 04:41 Nucleated RBCs # 0.0 /100WBC 10/10/23 04:41 PT 15.00 SECONDS (12.1-14.9) H 10/09/23 09:06 INR 1.14 (0.8-1.2) 10/09/23 09:06 APTT 29.7 SECONDS (23.9-36.7) 10/09/23 09:06 Sodium 136 mmol/L (136-145) 10/10/23 04:41 Potassium 3.6 mmol/L (3.5-5.1) 10/10/23 04:41 Chloride 100 mmol/L (98-107) 10/10/23 04:41 Carbon Dioxide 25 mmol/L (22-29) 10/10/23 04:41 Anion Gap 14.6 (5-19) 10/10/23 04:41 BUN 5 mg/dL (6-20) L 10/10/23 04:41 Creatinine 0.4 mg/dL (0.7-1.2) L 10/10/23 04:41 GFR Calculation 250.9 mL/min (90-130) H 10/10/23 04:41 Glucose 93 mg/dL (65-115) 10/10/23 04:41 Calculated Osmolality 279 mOsm/kg (285-295) L 10/10/23 04:41 Calcium 7.8 mg/dL (8.5-10.5) L 10/10/23 04:41 Magnesium 1.6 mg/dL (1.7-2.3) L 10/10/23 04:41 Total Bilirubin 3.5 mg/dL (0.15-1.2) H 10/10/23 04:41 AST 118 U/L (0-40) H 10/10/23 04:41 ALT 61 U/L (0-41) H 10/10/23 04:41 Alkaline Phosphatase 208 U/L (40-130) H 10/10/23 04:41 NT-Pro-B Natriuret Pep 926 pg/mL (0-125) H 10/09/23 09:06 Total Protein 5.9 g/dL (6.6-8.7) L 10/10/23 04:41 Albumin 2.8 g/dL (3.5-5.2) L 10/10/23 04:41 Globulin 3.1 g/dL (1.3-4.6) 10/10/23 04:41 Lipase 66 U/L (13-60) H 10/09/23 09:06 Urine Color Christina (Yellow) 10/09/23 09:35 Urine Appearance Clear (CLEAR) 10/09/23 09:35 Urine pH 7 (5-7) 10/09/23 09:35 Ur Specific [place] 1.005 (1.005-1.030) 10/09/23 09:35 Urine Protein Trace (Negative) 10/09/23 09:35 Urine Glucose (UA) Norm (Normal) 10/09/23 09:35 Urine Ketones Negative (Negative) 10/09/23 09:35 Urine Blood Neg (Negative) 10/09/23 09:35 Urine Nitrate Negative (Negative) 10/09/23 09:35 Urine Bilirubin 1+ (Negative) H 10/09/23 09:35 Urine Urobilinogen 4 mg/dL (Negative) H 10/09/23 09:35 Ur Leukocyte Esterase Trace (Negative) H 10/09/23 09:35 Urine RBC None /hpf (0-2) 10/09/23 09:35 Urine WBC 0-4 /hpf (0-5) H 10/09/23 09:35 Ur Squamous Epith Cells 0-4 /hpf (0-5) H 10/09/23 09:35 Amorphous Sediment Not Reportable 10/09/23 09:35 Urine Bacteria Trace /hpf (NONE) 10/09/23 09:35 Urine Mucus 1+ /hpf 10/09/23 09:35 Hepatitis A IgM Ab Non-reactive (Nonreactive) 10/09/23 09:06 Hep Bs Antigen Non-reactive (Nonreactive) 10/09/23 09:06 Hep B Core IgM Ab Non-reactive (Nonreactive) 10/09/23 09:06 Hepatitis C Antibody Non-reactive (Nonreactive) 10/09/23 09:06 Vitals Last Vital Signs Temp 97.4 F L 10/10/23 08:00 Pulse 102 H 10/10/23 08:00 Resp 22 H 10/10/23 08:00 BP 169/96 10/10/23 08:00 Pulse Ox 98 10/10/23 08:00 O2 Del Method Room Air 10/10/23 08:00 Discharge Plan Discharge Patient Disposition: Home Condition: Stable Prescriptions: New spironolactone 25 mg Tablet 50 mg PO DAILY Qty: 60 0RF furosemide 20 mg Tablet 20 mg PO DAILY@0800 Qty: 30 0RF Protonix 40 mg tablet,delayed release (DR/EC) 40 mg PO DAILY Qty: 30 0RF Continued albuterol sulfate 2.5 mg /3 mL (0.083 %) solution for nebulization 2.5 mg inhalation QID PRN (Reason: shortness of breath or wheezing) Qty: 30 0RF Rx Instructions: 340b epinephrine [EpiPen 2-Murphy] 0.3 mg/0.3 mL auto-injector 0.3 mg IM Q4H PRN (Reason: anaphylaxis) Qty: 2 0RF gabapentin 300 mg capsule 300 mg PO BEDTIME tizanidine 4 mg Tablet 4 mg PO Q8H PRN (Reason: Spasms) Discharge Orders: Discharge Order (Routine); Ordered 10/10/23 Ordered By: Caleb Carter Referrals: Andrew Vizcarra MD [Physician] - 10/13/23 9:30 am Discharge Diet: Low Salt Discharge Activity: Increase activity as tolerated Patient Instructions: Alcohol Abuse, Alcohol Withdrawal, Cirrhosis of the Liver (GEN), Opioid Safety Activity Restrictions/Additional Instructions: Take all medicine as directed Follow-up with your primary care provider 3 to 5 days CMP, CBC on follow-up No alcohol Return for any concerns Please have your primary care provider refer you to a acquisition specialist of their choice for your chronic liver disease. Discharge Attestations Time Spent in Discharge Care*: greater than 30 min Quality Metrics Clinical Quality Measures [ No reported AMI, CVA or VTE this stay] Coding Level of Care Code 11630 Total time (in minutes) for Discharge: 36 Diagnoses Cirrhosis of liver K70.31 Ascites presence: with ascites Hepatic cirrhosis type: alcoholic cirrhosis Anasarca R60.1 Alcohol withdrawal F10.939 Chronic alcohol abuse F10.10
[2023-10-10] MEDS: spironolactone 25 mg Tablet 50 MG PO (08:57)
== END 2023-10-10 09:08 | disposition home or self-care (01) ==
LOC: ER 11:14 → MEDSURG 10-10 07:02
PROVIDERS: Physician Assistant; Admitting Provider Internal Medicine; Emergency Provider Family Medicine; Visit Provider Internal Medicine
DX: K70.31 Alcoholic cirrhosis of liver with ascites (principal); R60.1 Generalized edema; F10.10 Alcohol abuse, uncomplicated; F17.200 Nicotine dependence, unspecified, uncomplicated
CPT/HCPCS: 36415; 71045; 74177; 80053; 80074; 81001; 83690; 83735; 83880; 85025; 85610; 85730; 93005; 94640; 96365; 96375; 99285; G0378; J1940; J2060; J3411; J3475; Q9967